=== PATIENT | female | born 1955 | race Caucasian/White ===

== ENCOUNTER 2022-05-08 05:17 | Emergency (ER) | payer MEDICARE, SELFPAY ==
--- NOTE | ~2022-05-08 | CT_ITS ---
EXAMINATION: CT abdomen pelvis w con DATE: 05/08/2022 06:19 INDICATION: Abdominal pain. Nausea and vomiting. TECHNIQUE: Computed tomography (CT) of the abdomen and pelvis was performed with 100 mL Omnipaque 350 intravenous contrast. Automated exposure control and iterative reconstruction technique were employe d. The dose-length product was 701.65 mGy-cm. COMPARISON: None. FINDINGS: The visualized portions of the lung bases demonstrated mild atelectasis. No pleural effusio n. The heart size is normal. No pericardial effusion. There is a small sliding hiatal hernia. The kayce er, spleen, gallbladder, pancreas, and adrenal glands are normal. There is cortical thinning of right kidney. There are cysts in left kidney measuring up to 5.7 cm. There are surgical clips around the r ectum. The appendix is not visualized. There are multiple dilated loops of small bowel with transitio n point in the lower abdomen. There are no pathologically enlarged lymph nodes. There is no free intr aperitoneal fluid. There is moderate lumbar spondylosis. There is a chronic compression fracture of L 1. IMPRESSION: 1. Small bowel obstruction with transition point in the lower abdomen. 2. Small sliding hiatal hernia. Reviewed, dictated and finalized at location A.
[2022-05-08 05:23] VITALS: BP 146/80; PULSE 85; RESP 16; TEMP 36.1; O2SAT 97
--- NOTE | 2022-05-08 05:33 | ED.GENADULT ---
HPI - General Adult General Chief complaint: Nausea/Vomiting/Diarrhea Stated complaint: N/V SINCE 8PM 05/07 Time Seen by Provider: 05/08/22 05:22 History of Present Illness HPI narrative: 67-year-old female history of colon cancer presenting to the emergency department for evaluation of nausea vomiting and lower abdominal pain. Patient states that multiple times over the last 20 years she has had issues where she gets an ileus or a transient bowel obstruction. Patient states that she often has to transition to a soft diet or sometimes has to present to the hospital for fluids and for pain control. Patient states she has never had to have surgery and has never been diagnosed with a small bowel obstruction. Patient is visiting her family normally lives in [facility]. Related Data Allergies Allergy/AdvReac Type Severity Reaction Status Date / Time hydromorphone [From Dilaudid] AdvReac Hypotension Verified 05/08/22 05:19 meperidine [From Demerol] AdvReac Hypotension Verified 05/08/22 05:19 metoclopramide [From Reglan] AdvReac Jittery Verified 05/08/22 05:19 Review of Systems Review of Systems: CONSTITUTIONAL: Denies fever, chills, or sweats. EYES: Denies visual changes, redness, or discharge. ENT: Denies rhinorrhea, congestion, sore throat, or otalgia. CARDIOVASCULAR: Denies chest pain, palpitations, or edema. RESPIRATORY: Denies cough or dyspnea. GASTROINTESTINAL: Nausea vomiting GENITOURINARY: Denies dysuria or hematuria. SKIN: Denies rash or itching. MUSCULOSKELETAL: Denies back pain, joint pain, or myalgia. NEUROLOGIC: Denies headache, numbness, or weakness. Exam Narrative: APPEARANCE: Well appearing, no pain, no distress, well-nourished. HEAD: normocephalic, atraumatic. EYES: PERRLA/EOMI, conjunctivae clear. NECK: Supple. No adenopathy, no masses. RESPIRATORY: Airway patent, respirations nonlabored. Clear to auscultation bilaterally, no rales, rhonchi, wheezing. CARDIOVASCULAR: Regular rate and rhythm without murmurs rubs or gallops. ABDOMINAL: Soft, mild tenderness to palpation. Decreased bowel sounds. MUSCULOSKELETAL: Moves all extremities. Strength/ROM intact, No edema, No calf tenderness. NEURO: Alert. Cranial nerves II through XII intact. Grossly intact SKIN: Warm, dry. Normal Color Course Course Emergency Course: Patient states she does have issues with fentanyl and Dilaudid but can tolerate morphine. Patient states that she does have an allergy to Reglan as well Patient is afebrile with no leukocytosis. Patient's electrolytes are within normal limits. Patient's lactic acid is not elevated. At time of signout imaging is pending. Vital Signs Vital signs: Vital Signs Temperature 97 F L 05/08/22 05:23 Pulse Rate 85 05/08/22 05:23 Respiratory Rate 16 05/08/22 05:23 Blood Pressure 146/80 H 05/08/22 05:23 Pulse Oximetry 97 05/08/22 05:23 Oxygen Delivery Room Air 05/08/22 05:23 Temperature 97 F L 05/08/22 05:23 Pulse Rate 85 05/08/22 05:23 Respiratory Rate 16 05/08/22 05:23 Blood Pressure 146/80 H 05/08/22 05:23 Pulse Oximetry 97 05/08/22 05:23 Oxygen Delivery Room Air 05/08/22 05:23 Medical Decision Making Vital Signs Vital Signs: Vital Signs Temperature 97 F L 05/08/22 05:23 Pulse Rate 85 05/08/22 05:23 Respiratory Rate 16 05/08/22 05:23 Blood Pressure 146/80 H 05/08/22 05:23 Pulse Oximetry 97 05/08/22 05:23 Oxygen Delivery Room Air 05/08/22 05:23 Temperature 97 F L 05/08/22 05:23 Pulse Rate 85 05/08/22 05:23 Respiratory Rate 16 05/08/22 05:23 Blood Pressure 146/80 H 05/08/22 05:23 Pulse Oximetry 97 05/08/22 05:23 Oxygen Delivery Room Air 05/08/22 05:23 Lab Data Result diagrams: 05/08/22 05:38 05/08/22 05:38 Labs: Lab Results 05/08/22 05/08/22 05/08/22 Range/Units 05:38 05:38 05:38 WBC 8.1 (4.5-10.0) K/mm3 RBC 4.80 (4.2-5.4) M/mm3 Hgb 15.5 H (12.0-15.0)
[2022-05-08] MEDS: ONDANSETRON INJ 4 MG/2 ML VIAL IV PUSH (05:36)
[2022-05-08] MEDS: SODIUM CHLORIDE 0.9% IV 1,000 ML 999 ML IV CONT (05:36)
[2022-05-08] MEDS: MORPHINE SULFATE (*CRX) 4 MG/ML INJ IV PUSH (05:37)
[2022-05-08 05:46] LABS: Basophils Percent Auto 0.2 % (0.2-1.2); Eosinophils Percent Auto 0.1 % (0-4.4); Hematocrit 46.6 % (37.0-47.0); Hemoglobin 15.5 g/dL (12.0-15.0); Immature Granulocyte Absolute 0.03 K/mm3 (0.00-0.031); Immature Granulocyte Percent A 0.4 % (0-0.5); Lymphocytes Absolute Auto 0.59 K/mm3 (0.9-3.2); Lymphocytes Percent Auto 7.3 % (18.3-44.2); Mean Corpuscular HGB Conc 33.3 g/dl (32-36); Mean Corpuscular Hemoglobin 32.3 pg (26-34); Mean Corpuscular Volume 97.1 fl (80-100); Mean Platelet Volume 10.5 fl (7.4-10.4); Monocytes Absolute Auto 0.5 K/mm3 (0.1-0.6); Monocytes Percent Auto 6.1 % (2.6-8.5); Neutrophils Percent Auto 85.9 % (45.5-73.1); Platelet Count Result 169 k/mm3 (150-375); Red Cell Distribution Width 12.6 % (11.5-14.5); White Blood Count 8.1 K/mm3 (4.5-10.0)
[2022-05-08 05:57] LABS: Lactic Acid Reflex 1.1 mmol/L (0.7-2.0)
[2022-05-08 05:58] LABS: Alanine Aminotransferase 36 U/L (6-35); Albumin Level 4.9 g/dL (3.5-5.1); Alkaline Phosphatase 96 U/L (38-126); Anion Gap 9 mmol/L (8-16); Aspartate Amino Transferase 36 U/L (14-36); Bilirubin,Total 0.6 mg/dL (0.2-1.3); Blood Urea Nitrogen 17 mg/dL (7-17); Calcium 10.9 mg/dL (8.4-10.2); Carbon Dioxide 29 mmol/L (22-30); Chloride 105 mmol/L (98-107); Estimated CRCL calculation 70 ml/min; Estimated Glomerular Filt Rate > 60; Glucose 151 mg/dL (65-110); Lipase 60 U/L (23-300); Potassium 4.4 mmol/L (3.4-5.0); Sodium 143 mmol/L (137-145)
[2022-05-08 06:33] LABS: Appearance Urine Clear (Clear); Bilirubin Urine Negative (Negative); Blood Urine Negative (Negative); Color Urine Yellow (Yellow); Glucose Urine UA Negative (Negative); Ketones Urine Negative (Negative); Leukocyte Esterase Ur Negative LEU/UL (Negative); Nitrate Urine Negative (Negative); Protein Urine Negative (Negative); Urobilinogen Urine 0.2 mg/dL (<2.0); pH Urine 5.5 (5.0-9.0)
[2022-05-08 06:37] LABS: Add Urine Microscopic? NO
[2022-05-08 07:15] VITALS: BP 123/88; PULSE 89; RESP 19; O2SAT 97
== END 2022-05-08 07:15 | disposition home or self-care (01) ==
PROVIDERS: Emergency Provider Emergency Medicine
DX: K56.609 Unspecified intestinal obstruction, unspecified as to partial versus complete obstruction (principal); Z85.038 Personal history of other malignant neoplasm of large intestine; Z90.49 Acquired absence of other specified parts of digestive tract; K44.9 Diaphragmatic hernia without obstruction or gangrene
CPT/HCPCS: 36415; 74177; 80053; 81003; 83605; 83690; 85025; 96361; 96374; 96375; 99284; J2270; J2405; J7030; Q9967